=== PATIENT | female | born 1980 | race Caucasian/White ===

== ENCOUNTER 2017-08-19 14:33 | Observation (INO) | payer BC ==
[2017-08-19 14:33] VITALS: BMI 27.1
--- NOTE | 2017-08-19 16:12 | C.PDOC ---
History Of Present Illness 37 year old female, who is currently (M2), is sent to the ED by her RADIOLOGIC THERAPIST Dr. Snowden for further evaluation of anemia. Patient admits to previous history of anemia and notes she has underwent blood transfusion in the past " leeding heavily during my menstrual period". Over the past few weeks, patient has developed intermittent palpations on exertion, weakness and dizziness. Patient's most recent bloodwork done on 08/15/17 showed hemoglobin level of 7.6. Otherwise, patient denies fever, chills, chest pain, shortness of breath, nausea, vomiting, abdominal pain, denies vaginal bleeding, hematuria, back pain. Patient states her LMP was 07/12/17. Ambulate to ED for evaluation, not in any apparent distress. Time Seen by Provider: 08/19/17 14:40 Chief Complaint (Nursing): Abnormal Labs History Per: Patient History/Exam Limitations: no limitations Onset/Duration Of Symptoms: Days Current Symptoms Are (Timing): Still Present Additional History Per: Patient Past Medical History Reviewed: Historical Data, Nursing Documentation, Vital Signs Vital Signs: Last Vital Signs Temp 98.7 F 08/19/17 14:35 Pulse 98 H 08/19/17 14:35 Resp 18 08/19/17 14:35 BP 128/73 08/19/17 14:35 Pulse Ox 100 08/19/17 17:54 - Medical History PMH: Anemia Surgical History: (x2) - [facility] Procedures HEMORRHOIDECTOMY (08/05/13) TETANUS TOXOID ADMINIST (05/10/14) Family History: States: Unknown Family Hx - Social History Hx Tobacco Use: No Hx Alcohol Use: No Hx Substance Use: No - Immunization History Hx Tetanus Toxoid Vaccination: Yes (05/10/2014) Hx Influenza Vaccination: No Hx Pneumococcal Vaccination: No Review Of Systems Constitutional: Positive for: Weakness, Other (low hemoglobin ). Negative for: Fever, Chills Cardiovascular: Positive for: Palpitations. Negative for: Chest Pain Respiratory: Negative for: Shortness of Breath Gastrointestinal: Negative for: Nausea, Vomiting, Abdominal Pain Neurological: Positive for: Dizziness Physical Exam - Physical Exam Appears: Non-toxic, No Acute Distress Skin: Normal Color, Warm, Dry, No Pale Head: Normacephalic Eye(s): bilateral: Normal Inspection Oral Mucosa: Moist Neck: Supple Chest: Symmetrical, No Deformity, No Tenderness Cardiovascular: Rhythm Regular Respiratory: Normal Breath Sounds, No Decreased Breath Sounds, No Accessory Muscle Use, No Stridor, No Wheezing Gastrointestinal/Abdominal: Soft, No Tenderness, No Guarding, No Rebound Extremity: Normal ROM, Capillary Refill (less than 2 seconds ) Neurological/Psych: Oriented x3, Normal Speech, Normal Cognition ED Course And Treatment - Laboratory Results Result Diagrams: 08/19/17 16:09 08/19/17 16:09 Lab Interpretation: Abnormal Urine POC: Positive ECG: Interpreted By Me, Viewed By Me ECG Rhythm: Sinus Rhythm Interpretation Of ECG: SR@73/min, NAD, no acute T wave or ST-T changes. O2 Sat by Pulse Oximetry: 100 (on RA) Pulse Ox Interpretation: Normal - CT Scan/US OB US Other Rad Studies (CT/US): Radiology Report Reviewed CT/US Interpretation: FINDINGS: LMP: 07/02/2017. Prior examinations from the current : None. TECHNIQUE: Real-time 2D imaging, duplex and color Doppler. FINDINGS: Cardiac activity: Present. Rate: 142 BPM. Measurements: [place] rump length: 0.98 cm. Gestational age based on CRL 7 weeks. Gestational age 7 weeks 6 days based on gestational sac measurement 2.95 cm. Gestational age derived from LMP: 6 weeks 6 days. ELIZABETH based on LMP: 2018. ELIZABETH based on biometry: 04/04/2018. Gestational concordance documented. Yolk sac identified. Uterus: Unremarkable. Cervix: No Cervical abnormalities: Negative examination for cervical dilatation or effacement. Closed cervix measuring 3.25 cm. Subchorionic hemorrhage: None. UTERUS: 5.6 x 6.6 x 10.2 cm. ADNEXA: Right: 2.5 x 2.5 x 3.1 cm. 1.1 x 2.6 x 2.8 Normal Doppler arterial waveform documented. Simple cyst likely corpus luteum cyst 1.6 x 1.7 cm. Left: 1.1 x 2.6 x 2.9 cm. Normal Doppler arterial waveform documented. Fluid in the cul-de-sac: None. IMPRESSION: 7 weeks 3 days live intrauterine gestation. Gestational concordance documented. Progress Note: Bloodwork, urinalysis, and EKG ordered. Pt remained stable during the ED evaluation. Blood work review H/H 7.3/25. Case discussed with OB on-call , will consult during the admission. Discussed with , admission arranged to med/surg with Dx: Symptomatic anemia, (+) Disposition - Disposition Disposition: HOME/ ROUTINE Disposition Time: 16:55 Condition: STABLE - Clinical Impression Clinical Impression: Palpitation, Anemia during - PA / DENTAL DIRECTOR / Resident Statement MD/DO has reviewed & agrees with the documentation as recorded. - Scribe Statement The provider has reviewed the documentation as recorded by the Scribe (Shante Lechuga) All medical record entries made by the Scribe were at my direction and personally dictated by me. I have reviewed the chart and agree that the record accurately reflects my personal performance of the history, physical exam, medical decision making, and the department course for this patient. I have also personally directed, reviewed, and agree with the discharge instructions and disposition.
[2017-08-19 16:14] LABS: BASO % 0.8 % (0.0-2.0); EOS # 0.1 K/uL (0.0-0.7); HEMOGLOBIN 7.3 g/dL (11.0-16.0); LYMPH # 1.3 K/uL (1.0-4.3); LYMPH % 22.5 % (20.0-40.0); MEAN CORPUSCULAR HEMOGLOBIN 19.1 pg (27.0-31.0); MEAN CORPUSCULAR HGB CONC 29.7 g/dL (33.0-37.0); MEAN PLATELET VOLUME 8.5 fL (7.2-11.7); MONO # 0.5 K/uL (0.0-0.8); MONO % 8.3 % (0.0-10.0); NEUT % 67.4 % (50.0-75.0); NRBC % 0.1 % (0.0-2.0); RBC 3.81 Mil/uL (3.80-5.20); RED CELL DISTRIBUTION WIDTH 18.8 % (11.5-14.5); WHITE BLOOD COUNT 5.9 K/uL (4.8-10.8)
[2017-08-19 16:15] LABS: MEAN CELL VOLUME 64.4 fL (81.0-99.0)
[2017-08-19 16:22] LABS: INR 1.1; PROTHROMBIN TIME 12.2 SECONDS (9.7-12.2)
[2017-08-19 16:32] LABS: ALB/GLOB RATIO 1.2 (1.0-2.1); ALBUMIN 3.6 g/dL (3.5-5.0); ALT/SGPT 26 U/L (9-52); AST/SGOT 19 U/L (14-36); BLOOD UREA NITROGEN 13 mg/dL (7-17); CALCIUM 8.3 mg/dl (8.6-10.4); GFR AFRICAN-AMERICAN > 60; GFR NON-AFRICAN AMERICAN > 60
[2017-08-19 16:43] LABS: SQUAMOUS EPITHIAL 8 /hpf (0-5); URINE BACTERIA RARE (<OCC); URINE BILIRUBIN NEGATIVE (NEGATIVE); URINE BLOOD 1+ (NEGATIVE); URINE CLARITY Hazy (Clear); URINE COLOR Yellow (YELLOW); URINE GLUCOSE (UA) NORMAL (Normal); URINE LEUKOCYTE ESTERASE NEG Leu/uL (Negative); URINE PROTEIN NEGATIVE (NEGATIVE); URINE UROBILINOGEN NORMAL mg/dL (0.2-1.0)
--- NOTE | 2017-08-19 18:36 | US ---
PROCEDURE: First trimester ultrasound HISTORY: abdominal pain, anemia COMPARISON: None TECHNIQUE: Standard protocol for this study/examination. FINDINGS: LMP: 07/02/2017 Prior examinations from the current : None TECHNIQUE: Real-time 2D imaging, duplex and color Doppler. FINDINGS: Cardiac activity: Present Rate: 142 BPM Measurements: [place] rump length: 0.98 cm Gestational age based on CRL 7 weeks Gestational age 7 weeks 6 days based on gestational sac measurement 2.95 cm Gestational age derived from LMP: 6 weeks 6 days ELIZABETH based on LMP: 04/08/2018 ELIZABETH based on biometry: 04/04/2018 Gestational concordance documented Yolk sac identified Uterus: Unremarkable. Cervix: No Cervical abnormalities: Negative examination for cervical dilatation or effacement. Closed cervix measuring 3.25 cm Subchorionic hemorrhage: None UTERUS: 5.6 x 6.6 x 10.2 cm. ADNEXA: Right: 2.5 x 2.5 x 3.1 cm. 1.1 x 2.6 x 2.8 Normal Doppler arterial waveform documented. Simple cyst likely corpus luteum cyst 1.6 x 1.7 cm. Left: 1.1 x 2.6 x 2.9 cm. Normal Doppler arterial waveform documented Fluid in the cul-de-sac: None IMPRESSION: 7 weeks 3 days live intrauterine gestation. Gestational concordance documented.
--- NOTE | 2017-08-19 20:10 | CP.PCM.HP ---
Past Patient History - Infectious Disease Hx of Infectious Diseases: None - Past Medical History & Family History Past Medical History?: Yes - Past Social History Smoking Status: Never Smoked - HEMATOLOGICAL/ONCOLOGICAL Hx Anemia: Yes - GASTROINTESTINAL Hx Gastrointestinal Disorders: Yes Hx Hemorrhoids: Yes - GENITOURINARY/GYNECOLOGICAL Hx Genitourinary Disorders: No - PSYCHIATRIC Hx Substance Use: No - SURGICAL HISTORY Hx Surgeries: Yes Hx Section: Yes Other/Comment: HEMORRHOIDECTOMY - ANESTHESIA Hx Anesthesia Reactions: No Hx Malignant Hyperthermia: No Meds Allergies/Adverse Reactions: Allergies Allergy/AdvReac Type Severity Reaction Status Date / Time seafood Allergy Severe RASH Uncoded 08/19/17 14:38 Physical Exam - Constitutional Appears: Well - Head Exam Head Exam: ATRAUMATIC, NORMAL INSPECTION, NORMOCEPHALIC - Eye Exam Eye Exam: EOMI, Normal appearance, PERRL Pupil Exam: NORMAL ACCOMODATION, PERRL - ENT Exam ENT Exam: Mucous Membranes Moist, Normal Exam - Neck Exam Neck exam: Positive for: Normal Inspection - Respiratory Exam Respiratory Exam: Decreased Breath Sounds - Cardiovascular Exam Cardiovascular Exam: REGULAR RHYTHM, +S1, +S2 - GI/Abdominal Exam GI & Abdominal Exam: Diminished Bowel Sounds, Soft - Rectal Exam Rectal Exam: Deferred Results - Vital Signs Recent Vital Signs: Last Vital Signs Temp 98.5 F 08/19/17 20:05 Pulse 87 08/19/17 20:05 Resp 18 08/19/17 20:05 BP 123/67 08/19/17 20:05 Pulse Ox 100 08/19/17 20:05 - Labs Result Diagrams: 08/19/17 16:09 08/19/17 16:09 Labs: Laboratory Results - last 24 hr 08/19/17 08/19/17 08/19/17 16:09 16:09 16:09 WBC 5.9 RBC 3.81 Hgb 7.3 L Hct 24.5 L MCV 64.4 L D MCH 19.1 L MCHC 29.7 L RDW 18.8 H Plt Count 293 MPV 8.5 Neut % (Auto) 67.4 Lymph % (Auto) 22.5 [place] % (Auto) 8.3 Eos % (Auto) 1.0 Baso % (Auto) 0.8 Neut # (Auto) 4.0 Lymph # (Auto) 1.3 [place] # (Auto) 0.5 Eos # (Auto) 0.1 Baso # (Auto) 0.0 Differential Comment PT 12.2 INR 1.1 APTT 26 Sodium 139 Potassium 3.6 Chloride 108 H Carbon Dioxide 22 Anion Gap 14 BUN 13 Creatinine 0.5 L Est GFR ( Amer) > 60 Est GFR (Non-Af Amer) > 60 Random Glucose 99 Calcium 8.3 L Total Bilirubin 0.3 AST 19 ALT 26 Alkaline Phosphatase 81 Total Protein 6.7 Albumin 3.6 Globulin 3.1 Albumin/Globulin Ratio 1.2 Beta HCG, Quant 29508.00 Urine Color Urine Clarity Urine pH Ur Specific [place] Urine Protein Urine Glucose (UA) Urine Ketones Urine Blood Urine Nitrate Urine Bilirubin Urine Urobilinogen Ur Leukocyte Esterase Urine WBC (Auto) Urine RBC (Auto) Ur Squamous Epith Cells Urine Bacteria Blood Type Antibody Screen 08/19/17 08/19/17 16:09 16:14 WBC RBC Hgb Hct MCV MCH MCHC RDW Plt Count MPV Neut % (Auto) Lymph % (Auto) [place] % (Auto) Eos % (Auto) Baso % (Auto) Neut # (Auto) Lymph # (Auto) [place] # (Auto) Eos # (Auto) Baso # (Auto) Differential Comment PT INR APTT Sodium Potassium Chloride Carbon Dioxide Anion Gap BUN Creatinine Est GFR ( Amer) Est GFR (Non-Af Amer) Random Glucose Calcium Total Bilirubin AST ALT Alkaline Phosphatase Total Protein Albumin Globulin Albumin/Globulin Ratio Beta HCG, Quant Urine Color Yellow Urine Clarity Hazy Urine pH 6.0 Ur Specific [place] 1.021 Urine Protein Negative Urine Glucose (UA) Normal Urine Ketones Negative Urine Blood 1+ H Urine Nitrate Negative Urine Bilirubin Negative Urine Urobilinogen Normal Ur Leukocyte Esterase Neg Urine WBC (Auto) < 1 Urine RBC (Auto) 9 H Ur Squamous Epith Cells 8 H Urine Bacteria Rare Blood Type O POSITIVE Antibody Screen Negative Assessment & Plan (1) Anemia during Status: Acute (2) Palpitation Status: Acute (3) Acute urinary tract infection Status: Acute (4) Laceration of finger Status: Acute (5) Left ankle sprain Status: Acute (6) Urinary tract infection Status: Acute - Assessment and Plan (Free Text) Plan: Patient with the low hemoglobin will call him on an PUBLIC HEALTH SPECIALIST on the case Continue same on rafa ongyn notified
[2017-08-20 07:48] LABS: BASO % 0.8 % (0.0-2.0); EOS # 0.1 K/uL (0.0-0.7); EOS % 1.5 % (0.0-4.0); HEMOGLOBIN 8.2 g/dL (11.0-16.0); LYMPH # 1.3 K/uL (1.0-4.3); MEAN CELL VOLUME 65.4 fL (81.0-99.0); MEAN CORPUSCULAR HEMOGLOBIN 20.3 pg (27.0-31.0); MEAN CORPUSCULAR HGB CONC 31.1 g/dL (33.0-37.0); MEAN PLATELET VOLUME 8.8 fL (7.2-11.7); MONO # 0.4 K/uL (0.0-0.8); MONO % 8.4 % (0.0-10.0); NEUT # 3.3 K/uL (1.8-7.0); NEUT % 64.3 % (50.0-75.0); RBC 4.04 Mil/uL (3.80-5.20); RED CELL DISTRIBUTION WIDTH 19.8 % (11.5-14.5); WHITE BLOOD COUNT 5.1 K/uL (4.8-10.8)
[2017-08-20 09:18] LABS: FOLATE 9.7 ng/mL
[2017-08-20] MEDS: Ferric Sodium Gluconat Complex 62.5 mg/5 ml Vial IVPB SCH (10:04)
--- NOTE | 2017-08-20 12:05 | CP.PCM.CON ---
History of Present Illness - History of Present Illness History of Present Illness: 37 year old female currently 8 weeks , with a history of prior menorrhagia, chronic anemia, admitted with symptomatic anemia. The patient notes to having worsening fatigue and dizziness. 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 She does admit to intermittent bleeding per rectum which she notes is related to hemorrhoids. Otherwise, she denies current abnormal bleeding. She is s/p PRBC transfusion and notes to feeling better. Past medical history: Hemorrhoids, anemia Past surgical history: Hemorrhoidectomy Family history: Denies hematologic and oncologic problems Social history: Denies tobacco, alcohol, and illicit drug use. Allergies: NKDA Review of systems: All remaining review of systems including HEENT, cardiovascular, respiratory, gastrointestinal, genitourinary, musculoskeletal, dermatologic, neurologic, and psychiatric are negative unless mentioned in the HPI. Past Patient History - Infectious Disease Hx of Infectious Diseases: None - Past Medical History & Family History Past Medical History?: Yes - Past Social History Smoking Status: Never Smoked - HEMATOLOGICAL/ONCOLOGICAL Hx Anemia: Yes - GASTROINTESTINAL Hx Gastrointestinal Disorders: Yes Hx Hemorrhoids: Yes - GENITOURINARY/GYNECOLOGICAL Hx Genitourinary Disorders: No - PSYCHIATRIC Hx Substance Use: No - SURGICAL HISTORY Hx Surgeries: Yes Hx Section: Yes Other/Comment: HEMORRHOIDECTOMY - ANESTHESIA Hx Anesthesia Reactions: No Hx Malignant Hyperthermia: No Meds Allergies/Adverse Reactions: Allergies Allergy/AdvReac Type Severity Reaction Status Date / Time seafood Allergy Severe RASH Uncoded 08/19/17 14:38 - Medications Medications: Current Medications Ferric Sodium Gluconate Complex (Ferrlecit) 125 mg IVPB DAILY CHELO Stop: 08/28/17 10:01 Last Admin: 08/20/17 10:04 Dose: 125 mg Physical Exam - Head Exam Head Exam: ATRAUMATIC - Eye Exam Eye Exam: Normal appearance - ENT Exam ENT Exam: Mucous Membranes Dry - Respiratory Exam Respiratory Exam: NORMAL BREATHING PATTERN - Cardiovascular Exam Cardiovascular Exam: +S1, +S2 - GI/Abdominal Exam GI & Abdominal Exam: Normal Bowel Sounds - Extremities Exam Extremities exam: Positive for: normal inspection - Neurological Exam Neurological exam: Oriented x3 - Psychiatric Exam Psychiatric exam: Normal Affect, Normal Mood - Skin Skin Exam: Warm Results - Vital Signs Recent Vital Signs: Last Vital Signs Temp 98.1 F 08/20/17 07:05 Pulse 74 08/20/17 07:05 Resp 20 08/20/17 07:05 BP 116/69 08/20/17 07:05 Pulse Ox 99 08/20/17 07:05 - Labs Result Diagrams: 08/21/17 07:01 08/21/17 07:01 Labs: Laboratory Results - last 24 hr 08/19/17 08/19/17 08/19/17 16:09 16:09 16:09 WBC 5.9 RBC 3.81 Hgb 7.3 L Hct 24.5 L MCV 64.4 L D MCH 19.1 L MCHC 29.7 L RDW 18.8 H Plt Count 293 MPV 8.5 Neut % (Auto) 67.4 Lymph % (Auto) 22.5 [place] % (Auto) 8.3 Eos % (Auto) 1.0 Baso % (Auto) 0.8 Neut # (Auto) 4.0 Lymph # (Auto) 1.3 [place] # (Auto) 0.5 Eos # (Auto) 0.1 Baso # (Auto) 0.0 Differential Comment Retic Count PT 12.2 INR 1.1 APTT 26 Sodium 139 Potassium 3.6 Chloride 108 H Carbon Dioxide 22 Anion Gap 14 BUN 13 Creatinine 0.5 L Est GFR ( Amer) > 60 Est GFR (Non-Af Amer) > 60 Random Glucose 99 Calcium 8.3 L Ferritin Total Bilirubin 0.3 AST 19 ALT 26 Alkaline Phosphatase 81 Total Protein 6.7 Albumin 3.6 Globulin 3.1 Albumin/Globulin Ratio 1.2 Vitamin B12 Folate Beta HCG, Quant 97782.00 Urine Color Urine Clarity Urine pH Ur Specific [place] Urine Protein Urine Glucose (UA) Urine Ketones Urine Blood Urine Nitrate Urine Bilirubin Urine Urobilinogen Ur Leukocyte Esterase Urine WBC (Auto) Urine RBC (Auto) Ur Squamous Epith Cells Urine Bacteria Blood Type Antibody Screen 08/19/17 08/19/17 08/20/17 16:09 16:14 07:31 WBC 5.1 RBC 4.04 Hgb 8.2 L Hct 26.4 L MCV 65.4 L MCH 20.3 L MCHC 31.1 L RDW 19.8 H Plt Count 280 MPV 8.8 Neut % (Auto) 64.3 Lymph % (Auto) 25.0 [place] % (Auto) 8.4 Eos % (Auto) 1.5 Baso % (Auto) 0.8 Neut # (Auto) 3.3 Lymph # (Auto) 1.3 [place] # (Auto) 0.4 Eos # (Auto) 0.1 Baso # (Auto) 0.0 Differential Comment Retic Count 1.4 PT INR APTT Sodium Potassium Chloride Carbon Dioxide Anion Gap BUN Creatinine Est GFR ( Amer) Est GFR (Non-Af Amer) Random Glucose Calcium Ferritin Total Bilirubin AST ALT Alkaline Phosphatase Total Protein Albumin Globulin Albumin/Globulin Ratio Vitamin B12 Folate Beta HCG, Quant Urine Color Yellow Urine Clarity Hazy Urine pH 6.0 Ur Specific [place] 1.021 Urine Protein Negative Urine Glucose (UA) Normal Urine Ketones Negative Urine Blood 1+ H Urine Nitrate Negative Urine Bilirubin Negative Urine Urobilinogen Normal Ur Leukocyte Esterase Neg Urine WBC (Auto) < 1 Urine RBC (Auto) 9 H Ur Squamous Epith Cells 8 H Urine Bacteria Rare Blood Type O POSITIVE Antibody Screen Negative 08/20/17 07:31 WBC RBC Hgb Hct MCV MCH MCHC RDW Plt Count MPV Neut % (Auto) Lymph % (Auto) [place] % (Auto) Eos % (Auto) Baso % (Auto) Neut # (Auto) Lymph # (Auto) [place] # (Auto) Eos # (Auto) Baso # (Auto) Differential Comment Retic Count PT INR APTT Sodium Potassium Chloride Carbon Dioxide Anion Gap BUN Creatinine Est GFR ( Amer) Est GFR (Non-Af Amer) Random Glucose Calcium Ferritin 5.0 Total Bilirubin AST ALT Alkaline Phosphatase Total Protein Albumin Globulin Albumin/Globulin Ratio Vitamin B12 385 Folate 9.7 Beta HCG, Quant Urine Color Urine Clarity Urine pH Ur Specific [place] Urine Protein Urine Glucose (UA) Urine Ketones Urine Blood Urine Nitrate Urine Bilirubin Urine Urobilinogen Ur Leukocyte Esterase Urine WBC (Auto) Urine RBC (Auto) Ur Squamous Epith Cells Urine Bacteria Blood Type Antibody Screen Assessment & Plan (1) Anemia during Assessment and Plan: work up consistent with iron deficiency anemia s/p PRBC transfusion will start IV iron pt reports to hemorrhoidal bleeding but does not want to see GI until after her Thank you for this interesting consult. Status: Acute
--- NOTE | 2017-08-20 12:36 | CP.PCM.PN ---
Subjective - Date & Time of Evaluation Date of Evaluation: 08/20/17 Time of Evaluation: 09:20 - Subjective Subjective: clinically same Objective - Vital Signs/Intake and Output Vital Signs (last 24 hours): Temp Pulse Resp BP Pulse Ox 98.1 F 74 20 116/69 99 08/20/17 07:05 08/20/17 07:05 08/20/17 07:05 08/20/17 07:05 08/20/17 07:05 - Medications Medications: Current Medications Ferric Sodium Gluconate Complex (Ferrlecit) 125 mg IVPB DAILY CHELO Stop: 08/28/17 10:01 Last Admin: 08/20/17 10:04 Dose: 125 mg - Labs Labs: 08/20/17 07:31 08/19/17 16:09 PT 12.2 SECONDS (9.7-12.2) 08/19/17 16:09 INR 1.1 08/19/17 16:09 APTT 26 SECONDS (21-34) 08/19/17 16:09 - Constitutional Appears: Well - Head Exam Head Exam: ATRAUMATIC, NORMAL INSPECTION, NORMOCEPHALIC - Eye Exam Eye Exam: EOMI, Normal appearance, PERRL Pupil Exam: NORMAL ACCOMODATION, PERRL - ENT Exam ENT Exam: Mucous Membranes Moist, Normal Exam - Neck Exam Neck Exam: Full ROM, Normal Inspection. absent: Lymphadenopathy - Respiratory Exam Respiratory Exam: Decreased Breath Sounds - Cardiovascular Exam Cardiovascular Exam: REGULAR RHYTHM, +S1, +S2 - GI/Abdominal Exam GI & Abdominal Exam: Soft, Diminished Bowel Sounds - Rectal Exam Rectal Exam: Deferred Assessment and Plan (1) Anemia during Status: Acute (2) Palpitation Status: Acute (3) Acute urinary tract infection Status: Acute (4) Laceration of finger Status: Acute (5) Left ankle sprain Status: Acute (6) Urinary tract infection Status: Acute
--- NOTE | 2017-08-20 19:36 | CARD ---
APPROVED REPORT EKG Measurement Heart [id number] <Conclusion> Normal sinus rhythm with sinus arrhythmia Normal ECG
[2017-08-21 00:07] VITALS: O2SAT 98
[2017-08-21 07:13] LABS: BASO % 0.8 % (0.0-2.0); EOS # 0.1 K/uL (0.0-0.7); EOS % 1.2 % (0.0-4.0); HEMOGLOBIN 8.3 g/dL (11.0-16.0); LYMPH # 1.3 K/uL (1.0-4.3); LYMPH % 22.5 % (20.0-40.0); MEAN CELL VOLUME 65.9 fL (81.0-99.0); MEAN CORPUSCULAR HEMOGLOBIN 20.3 pg (27.0-31.0); MEAN CORPUSCULAR HGB CONC 30.9 g/dL (33.0-37.0); MEAN PLATELET VOLUME 8.6 fL (7.2-11.7); MONO # 0.5 K/uL (0.0-0.8); MONO % 8.8 % (0.0-10.0); NEUT # 3.9 K/uL (1.8-7.0); NEUT % 66.7 % (50.0-75.0); NRBC % 0.1 % (0.0-2.0); RBC 4.07 Mil/uL (3.80-5.20); RED CELL DISTRIBUTION WIDTH 20.3 % (11.5-14.5); WHITE BLOOD COUNT 5.8 K/uL (4.8-10.8)
[2017-08-21 07:39] LABS: BLOOD UREA NITROGEN 9 mg/dL (7-17); CALCIUM 8.5 mg/dl (8.6-10.4); GFR AFRICAN-AMERICAN > 60; GFR NON-AFRICAN AMERICAN > 60
[2017-08-21 09:38] VITALS: BP 114/90; PULSE 85; RESP 20; TEMP 98.2
[2017-08-21] MEDS ORDERED: Pneumococcal 23-Valent Vaccine IM ONE (10:00)
[2017-08-21] MEDS: Ferric Sodium Gluconat Complex 62.5 mg/5 ml Vial IVPB SCH (10:28)
[2017-08-21] MEDS ORDERED: Potassium Chloride 20 mEq ER Tab PO ONE (12:30)
--- NOTE | 2017-08-21 17:45 | CP.PCM.PN ---
Subjective - Date & Time of Evaluation Date of Evaluation: 08/21/17 Time of Evaluation: 11:00 - Subjective Subjective: Awake, alert, no sob or chest pains. Objective - Vital Signs/Intake and Output Vital Signs (last 24 hours): Temp Pulse Resp BP Pulse Ox 98.2 F 85 20 114/90 98 08/21/17 09:00 08/21/17 09:00 08/21/17 09:00 08/21/17 09:00 08/21/17 09:00 Intake and Output: 08/21/17 08/21/17 06:59 18:59 Intake Total 400 Balance 400 - Labs Labs: 08/21/17 07:01 08/21/17 07:01 PT 12.2 SECONDS (9.7-12.2) 08/19/17 16:09 INR 1.1 08/19/17 16:09 APTT 26 SECONDS (21-34) 08/19/17 16:09 Assessment and Plan - Assessment and Plan (Free Text) Assessment: 37 year old female admitted with severe anemia with , given transfusions, hemoglobin improved to 8.3. Seen and examined, alert and orientedx3, no sob or chest pains. Discussed with Dr Lo and DR Dina Lechuga, plan to discharge home today. Advised to follow up with PMD and the hematologyst in 1 week.
--- NOTE | 2017-08-21 21:34 | CP.PCM.PN ---
Subjective - Date & Time of Evaluation Date of Evaluation: 08/21/17 Time of Evaluation: 13:00 - Subjective Subjective: Feeling better Objective - Vital Signs/Intake and Output Vital Signs (last 24 hours): Temp Pulse Resp BP Pulse Ox 98.2 F 85 20 114/90 98 08/21/17 09:00 08/21/17 09:00 08/21/17 09:00 08/21/17 09:00 08/21/17 09:00 - Labs Labs: 08/21/17 07:01 08/21/17 07:01 PT 12.2 SECONDS (9.7-12.2) 08/19/17 16:09 INR 1.1 08/19/17 16:09 APTT 26 SECONDS (21-34) 08/19/17 16:09 - Head Exam Head Exam: ATRAUMATIC - Eye Exam Eye Exam: Normal appearance - ENT Exam ENT Exam: Mucous Membranes Dry - Respiratory Exam Respiratory Exam: NORMAL BREATHING PATTERN - Cardiovascular Exam Cardiovascular Exam: +S1, +S2 - GI/Abdominal Exam GI & Abdominal Exam: Normal Bowel Sounds Assessment and Plan (1) Anemia during Assessment & Plan: iron deficiency s/p PRBC transfusion on IV iron outpatient treatment Status: Acute
[2017-08-22] MEDS ORDERED: Potassium Chloride 20 mEq ER Tab PO ONE (12:05)
== END 2017-08-21 13:52 | disposition home or self-care (01) ==
LOC: C.ER 14:33 → C.9E 16:50 → C.3T 20:01
PROVIDERS: ADMIT Internal Medicine Nephrology; ATTEND Internal Medicine Nephrology
DX: O99.011 Anemia complicating pregnancy, first trimester (principal); D50.9 Iron deficiency anemia, unspecified; O22.41 Hemorrhoids in pregnancy, first trimester; O23.41 Unspecified infection of urinary tract in pregnancy, first trimester; O9A.211 Injury, poisoning and certain other consequences of external causes complicating pregnancy, first trimester; S61.219A Laceration without foreign body of unspecified finger without damage to nail, initial encounter; S93.402A Sprain of unspecified ligament of left ankle, initial encounter; Z3A.08 8 weeks gestation of pregnancy; O34.219 Maternal care for unspecified type scar from previous cesarean delivery
CPT/HCPCS: 36415; 36430; 76805; 76817; 80048; 80053; 81001; 82607; 82728; 82746; 84702; 85025; 85044; 85610; 85730; 86850; 86900; 86920; 93005; 96365; 96366; 99285; G0378; J2916; P9051